=== PATIENT | male | born 1955 | race African-American/Black ===

== ENCOUNTER 2024-08-22 08:59 | Emergency (ER) | payer MEDICARE, MEDICAID ==
[~2024-08-22] VITALS: Ht 170.2 cm; Wt 81.7 kg
[2024-08-22 09:23] LABS: MEAN CORPUSCULAR HEMOGLOBIN 28.2 pg (28.0-32.0); MEAN CORPUSCULAR VOLUME 88.1 fL (80.0-94.0); PLATELET 178 x1000/uL (130-400); RED BLOOD CELL COUNT 5.67 mill/uL (4.7-6.1); WHITE BLOOD COUNT 17.9 x1000/uL (4.5-11.0)
[2024-08-22 09:31] LABS: CHLORIDE 101 mEq/L (98-107); POTASSIUM 5.7 mEq/L (3.5-5.1); SODIUM 131 mEq/L (136-145)
[2024-08-22 09:32] LABS: CARBON DIOXIDE 20 mEq/L (21-32)
[2024-08-22 09:33] LABS: CALCIUM 8.7 mg/dL (8.7-10.4); INR 1.8
[2024-08-22] MEDS: IOHEXOL-350 100 ML BOTTLE ONE (09:35)
[2024-08-22 09:36] LABS: DIFFERENTIAL COMMENT 1
[2024-08-22 09:37] LABS: CREATININE 4.4 mg/dL (0.6-1.3); UREA NITROGEN BLOOD 67 mg/dL (9-23)
[2024-08-22 09:38] LABS: TROPONIN I HIGH SENSITIVITY 40 ng/L (3.0-53)
[2024-08-22] MEDS: DEXTROSE 50% WATER 50ML SYRINGE IV ONE ×5 (09:39→15:15)
[2024-08-22 09:41] LABS: ETHANOL BLOOD < 10 mg/dL (<10); GLUCOSE 29 mg/dL (70-105)
[2024-08-22] MEDS ORDERED: FUROSEMIDE 100MG/10ML VIAL IV STA (10:17)
[2024-08-22] MEDS: CALCIUM CHLORIDE 1GM/10ML SYR IV ONE (10:52)
[2024-08-22] MEDS: SODIUM CHLORIDE 0.9% (SEPSIS BOLUS) IV ONE (11:19)
[2024-08-22] MEDS: SODIUM BICARBONATE 8.4% 50MEQ/50ML SYR IV ONE (11:20)
[2024-08-22] MEDS: INSULIN REGULAR (HUMULIN R) 1000UNITS/10ML VIAL IV ONE (11:20)
[2024-08-22 11:40] LABS: ALANINE AMINOTRANSFERASE 167 IU/L (10-49); ALBUMIN 1.9 g/dL (3.2-4.8); ASPARTATE AMINOTRANSFERASE 724 IU/L (<34); BILIRUBIN DIRECT 0.5 mg/dL (<=3.0)
[2024-08-22 11:41] LABS: BILIRUBIN TOTAL 0.6 mg/dL (0.1-1.0); PROTEIN TOTAL 4.7 g/dL (6.0-8.3)
[2024-08-22] MEDS: FUROSEMIDE 40MG/4ML VIAL IV NR (11:49)
[2024-08-22 11:54] VITALS: TEMP 36.6
[2024-08-22 12:43] LABS: LACTIC ACID 3.6 mmol/L (0.4-2.0)
[2024-08-22 12:55] LABS: PLATELET ESTIMATE NORMAL; TOXIC VACUOLATION 2+
[2024-08-22 13:17] LABS: CREATINE KINASE 960 IU/L (46-171)
[2024-08-22] MEDS: DEXT 5%/0.9% NACL 1,000 ML IV SCH (14:07)
[2024-08-22] MEDS: NOREPINEPHRINE 8MG/250ML PMX 250 ML IV PRN (15:14)
[2024-08-22 15:33] LABS: BG BASE EXCESS -10.2 mmol/L (-2.0-3.0); BG CARBOXYHEMOGLOBIN 0.3 % (0.5-1.5); BG FRACTION INSPIRED OXYGEN 21; BG HCO3 ACT 13.3 mmol/L (21.0-28.0); BG METHEMOGLOBIN 0.3 % (0.5-1.5); BG OXYHEMOGLOBIN 96.4 % (94.0-98.0); BG PCO2 23.6 mmHg (35.0-48.0); BG PH 7.368 (7.350-7.450); BG PO2 97.5 mmHg (83.0-108.0); BG SAMPLE SITE RIGHT RADIAL; BG TOTAL HEMOGLOBIN 12.3 g/dL (13.5-17.5); BG VENT MODE ROOM AIR
[2024-08-22] MEDS ORDERED: DOCUSATE SODIUM 100MG CAPSULE PO PRN (16:30)
[2024-08-22] MEDS ORDERED: CLONIDINE 0.1MG TABLET PO PRN (16:30)
[2024-08-22] MEDS ORDERED: IPRATROPIUM/ALBUTEROL 0.5-3(2.5)MG/3ML NEB HHN PRN (16:30)
[2024-08-22] MEDS ORDERED: ACETAMINOPHEN 325MG TABLET PO PRN ×2 (16:30)
[2024-08-22] MEDS ORDERED: ONDANSETRON HCL 4MG/2ML INJ IV PRN (16:30)
[2024-08-22] MEDS ORDERED: PHENYLEPHRINE 50MG/250ML PMX 250 ML IV PRN (17:00)
[2024-08-22] MEDS ORDERED: VASOPRESSIN 20 UNIT in SODIUM CHLORIDE 0.9% 99 ML IV PRN (17:00)
[2024-08-22 17:20] LABS: LACTIC ACID 6.4 mmol/L (0.4-2.0)
[2024-08-22 17:28] LABS: AMMONIA 18 uMol/L (<32)
[2024-08-22 17:33] LABS: TROPONIN I HIGH SENSITIVITY 32 ng/L (3.0-53)
[2024-08-22 18:46] LABS: CLARITY URINE CLOUDY (CLEAR); COLOR URINE DARK YELLOW (YELLOW); GLUCOSE URINE NEGATIVE (NEGATIVE); KETONES URINE NEGATIVE (NEGATIVE); LEUKOCYTE ESTERASE URINE TRACE (NEGATIVE); NITRITE URINE NEGATIVE (NEGATIVE); OCCULT BLOOD URINE 2+ (NEGATIVE); PROTEIN URINE 1+ (NEGATIVE); SPECIFIC GRAVITY URINE 1.022 (1.005-1.030)
[2024-08-22 19:16] LABS: *AMPHETAMINES SCREEN URINE NEGATIVE (NEGATIVE); *BARBITURATES SCREEN URINE NEGATIVE (NEGATIVE); *BENZODIAZEPINES SCREEN URINE NEGATIVE (NEGATIVE); CANNABINOID URINE SCREEN NEGATIVE (NEGATIVE); ECSTASY MDMA SCREEN URINE NEGATIVE (NEGATIVE); PHENCYCLIDINE URINE SCREEN NEGATIVE (NEGATIVE)
[2024-08-22 19:21] LABS: METHADONE URINE SCREEN NEGATIVE (NEGATIVE); OPIATES URINE SCREEN NEGATIVE (NEGATIVE)
[2024-08-22 19:26] LABS: *COCAINE SCREEN URINE NEGATIVE (NEGATIVE)
[2024-08-22] MEDS: ALBUTEROL (0.083%) 2.5MG/3ML NEB HHN ONE (20:40)
[2024-08-22] MEDS ORDERED: DEXTROSE 50% WATER 50ML SYRINGE IV ONE (20:42)
[2024-08-22 20:57] LABS: AMORPHOUS SEDIMENT URINE 1+ /lpf; BACTERIA URINE 2+; SQUAMOUS EPITHELIAL CELL URINE FEW /lpf (RARE/1+); WBC URINE 0-2 /hpf (0-2)
[2024-08-22] MEDS: PHENYLEPHRINE 50MG/250ML PMX 250 ML IV PRN (21:22)
[2024-08-22 21:30] VITALS: PULSE 72; RESP 28; O2SAT 100
[2024-08-23] MEDS ORDERED: DEXTROSE 50% WATER 50ML SYRINGE IV PRN
[2024-08-23] MEDS: VASOPRESSIN 20 UNIT in SODIUM CHLORIDE 0.9% 99 ML IV PRN (01:22)
[2024-08-23] MEDS: SODIUM BICARBONATE 100 MEQ in DEXTROSE 5% WATER 900 ML IV SCH (01:28)
[2024-08-23] MEDS: VANCOMYCIN 1.5GM/250ML IV NR (01:32)
[2024-08-23] MEDS: PIPERACILLIN/TAZO 3.375G/50ML 50 ML IV SCH (04:07)
[2024-08-23 06:11] LABS: BG BASE EXCESS -17.9 mmol/L (-2.0-3.0); BG CARBOXYHEMOGLOBIN 0.3 % (0.5-1.5); BG DEOXYHEMOGLOBIN 3.5 % (0.0-5.0); BG FRACTION INSPIRED OXYGEN 36; BG HCO3 ACT 6.5 mmol/L (21.0-28.0); BG METHEMOGLOBIN 0.3 % (0.5-1.5); BG OXYGEN SATURATION 96.5 % (94.0-98.0); BG OXYHEMOGLOBIN 95.9 % (94.0-98.0); BG PCO2 15.1 mmHg (35.0-48.0); BG PH 7.249 (7.350-7.450); BG PO2 98.9 mmHg (83.0-108.0); BG SAMPLE SITE RIGHT RADIAL; BG TOTAL HEMOGLOBIN 15.2 g/dL (13.5-17.5); BG VENT MODE NASAL CANNULA
[2024-08-23] MEDS: DEXTROSE 10% WATER 500 ML IV NR (06:21)
[2024-08-23] MEDS: SODIUM BICARBONATE 8.4% 50MEQ/50ML SYR IV NR ×2 (06:30→10:53)
[2024-08-23] MEDS ORDERED: MIDAZOLAM 100MG/100ML PMX 100 ML IV PRN (08:15)
[2024-08-23] MEDS: SODIUM BICARBONATE 8.4% 50MEQ/50ML SYR IV SCH (08:27)
[2024-08-23 08:30] VITALS: PULSE 98; RESP 22; O2SAT 96
[2024-08-23] MEDS ORDERED: FENTANYL 2500MCG/250ML PMX 250 ML IV PRN (08:30)
[2024-08-23] MEDS ORDERED: FENTANYL CITRATE/PF 1,000 MCG in SODIUM CHLORIDE 0.9% 80 ML IV PRN (08:45)
[2024-08-23] MEDS ORDERED: FENTANYL CITRATE/PF 2,500 MCG in SODIUM CHLORIDE 0.9% 250 ML IV PRN (08:45)
[2024-08-23] MEDS: KETAMINE HCL 50 MG/ML 10ML IV NR (08:58)
[2024-08-23 08:59] VITALS: O2SAT 100
[2024-08-23] MEDS: MIDAZOLAM 100MG/100ML PMX 100 ML IV PRN (08:59)
[2024-08-23 09:48] LABS: BG FRACTION INSPIRED OXYGEN 100; BG HCO3 ACT 5.1 mmol/L (21.0-28.0); BG PCO2 30.1 mmHg (35.0-48.0); BG PH 6.846 (7.350-7.450); BG SAMPLE SITE RIGHT RADIAL; BG TOTAL HEMOGLOBIN < 4.5 g/dL (13.5-17.5); BG TOTAL RESPIRATORY RATE 22 b/min; BG VENT MODE VENT - AC
[2024-08-23 09:49] VITALS: PULSE 120; RESP 22
[2024-08-23] MEDS ORDERED: SODIUM BICARBONATE IV SCH (11:00)
[2024-08-23] MEDS ORDERED: NACL IV SCH (11:00)
[2024-08-23] MEDS ORDERED: DEXT IV SCH (11:00)
[2024-08-23 11:01] VITALS: BP 150/103; PULSE 132; RESP 33; O2SAT 100
== END 2024-08-23 11:16 ==
LOC: ER 09:15 → EDBEDREQ 11:09 → EDBEDREQTM 11:09 → EDBEDREQSVC 15:04 → ER 08-23 11:16
DX: A41.9 Sepsis, unspecified organism (principal); R65.20 Severe sepsis without septic shock; E87.5 Hyperkalemia; E11.649 Type 2 diabetes mellitus with hypoglycemia without coma; N17.9 Acute kidney failure, unspecified; R06.02 Shortness of breath; Z20.822 Contact with and (suspected) exposure to COVID-19
CPT/HCPCS: 80076; 80305; 80048; 81003; 80320; 82140; 82533; 82550; 82962 ×2; 83880; 83605; 83930; 83935; 84132; 85025; 85610; 87040; 87086; 84484; 87077; 36415 ×2; 84145; 71045 ×2; 70496; 70498; 70450; 73700; 74176; 93970; 76770; 94640; 82805; 82375; 93005; 96361 ×2; 96365; 96366; 96375 ×2; 96376 ×2; 99291; 87426; 36600; 96367; Q9967; J3370; J3490 ×8; J1940; J1815; J2543 ×2; J7030; J7070; J7050; A4606; G0480